=== PATIENT | male | born 1970 | race African-American/Black ===

== ENCOUNTER 2016-08-22 23:18 | Emergency (ER) | payer SELFPAY ==
[~2016-08-22] VITALS: Ht 180.3 cm; Wt 72.6 kg
[2016-08-22 23:18] VITALS: BP 157/80
--- NOTE | 2016-08-22 23:45 | Emergency Room Report ---
History of Present Illness General Chief Complaint: Behavioral Complaint Source: EMS Present Illness HPI This is an approximately 46-year-old male brought in by EMS for bizarre behavior. He was bubbling to himself and someone called 911. He was not running into traffic. EMS said he was in a 5150 before. Unknown name. Denies any other complaint. Very poor historian. Allergies: Coded Allergies: UNABLE TO ASSESS (Unverified , 08/22/16) Patient History Past Medical History: see triage record, old chart reviewed, unable to obtain Past Surgical History: unable to obtain Family History: unable to obtain Social History: other Immunizations: other Reviewed Nursing Documentation: PMH: Agreed, PSxH: Agreed Nursing Documentation-PMH Past Medical History: No History, Except For History Of Psychiatric Problem: Yes - Placed on 5150 before per EMS Review of Systems All Other Systems: limited - Patient is a poor historian Physical Exam Vital Signs Date Time Temp Pulse Resp B/P Pulse Ox O2 Delivery O2 Flow Rate FiO2 08/22/16 23:11 96.4 128 14 157/80 vitals with tachycardia Sp02 EP Interpretation: reviewed, normal General Appearance: alert/responsive, no apparent distress, non-toxic Head: normocephalic, atraumatic Eyes: PERRL, EOMI ENT: oropharynx normal Neck: supple/symm/no masses Respiratory: effort normal, no rhonchi, no wheezing Cardiovascular: no murmur, gallop, rub Gastrointestinal: non-tender, no mass, non-distended, no rebound/guarding, normal bowel sounds Musculoskeletal: gait & station normal Neurologic: oriented x3, sensory intact, motor strength/tone normal Skin: no rash, normal palpation Medical Decision Making Diagnostic Impression: Primary Impression: Psychosis Qualified Codes: F23 - Brief psychotic disorder ER Course Patient presents with bizarre behavior probably psychosis. He appeared to be at baseline. Patient did want anything to be done. While I was seeing other patients, he walked out. Last Vital Signs Date Time Temp Pulse Resp B/P Pulse Ox O2 Delivery O2 Flow Rate FiO2 08/22/16 23:11 96.4 128 14 157/80 Status: improved Disposition: HOME, SELF-CARE Condition: Stable Additional Instructions: Followup with your DrToni in 7 days. Follow with mental health. Return worse. SABINO MANTILLA M.D. Aug 22, 2016 23:45
[2016-08-23 01:39] VITALS: BP 157/80
== END 2016-08-23 01:39 | disposition home or self-care (01) ==
LOC: EDBD 23:18 → EMR 23:30
DX: F29 Unspecified psychosis not due to a substance or known physiological condition (principal)
CPT/HCPCS: 99283